=== PATIENT | female | born 1940 | race Caucasian/White ===

== ENCOUNTER 2017-02-19 08:15 | Day surgery (SDC) | payer MEDICARE, OTHER ==
[~2017-02-19] VITALS: Ht 157.5 cm; Wt 59.0 kg
[~2017-02-19 08:15] MED LIST: ATEN-138 PO; BENA20TA48 PO; CLOP75TA19 PO; LANT3I SC; METF500T3 PO; PHEN-549 PO; SERT50TA6 PO; SUCR1TAB56 GTB; ZOLP5TAB PO
[2017-02-19 08:48] VITALS: Ht 157.5 cm; Wt 59.0 kg
[2017-02-19] MEDS ORDERED: DEXTROSE 50% 50 ML SYRINGE ONE (09:10)
[2017-02-19] MEDS ORDERED: PROPOFOL 20 ML ONE ×2 (09:19→09:20)
[2017-02-19 09:39] VITALS: BP 120/59; PULSE 55; RESP 18
[2017-02-19] MEDS ORDERED: LABETALOL HCL 20MG INJ ONE (09:48)
--- NOTE | 2017-02-19 10:00 | OPPN ---
Date/Time of Note Date/Time of Note DATE: 02/19/17 TIME: 09:56 Proc Note GI Procedure Date 02/19/17 Pre-procedure Diagnosis abd pain rectal bleeding Post-procedure Diagnosis mild gastritis malfunctioning g tube ischemic colitis diverticulosis 'lax anal sphincter Procedure Performed: Endoscopy, Colonoscopy Surgeon see signature line Cafe Worker none Anesthesia Type: MAC Tourniquet Time none EBL none Transfusion required none Biopsy 1: gastric bx and colon bx Grafts/Implants none Tubes/Drains none Complication(s) none Pt Condition post procedure: stable Disposition: PACU Indications: lower GI bleed, upper abd Sx despite ther Operative\Procedure Findings egd colonoscopy gastritis g tube tamiko place changed ischemic colitis diverticulosis Procedure Description egd showed gastritis gtube changed colon showed ischemic colitis and diverticulosis lax anal sphincter ANDRIY SAVAGE MD Feb 19, 2017 10:00
[2017-02-19 10:45] VITALS: BP 153/66; PULSE 56; RESP 14
--- NOTE | 2017-02-20 07:36 | GILP ---
DATE OF PROCEDURE: NAME OF PROCEDURE: Esophagogastroduodenoscopy and change of G-tube. PREOPERATIVE DIAGNOSIS: Patient presenting with history of abdominal pain unresponsive to routine t herapy, rule out peptic ulcer disease, gastrostomy site ulcer disease. POSTOPERATIVE DIAGNOSES: Mild patchy gastritis. G-tube is damaged, hence, G-tube was changed. DESCRIPTION OF PROCEDURE: After informed written consent was obtained, the patient was asked to lie on the left lateral side. Intravenous anesthesia was given by anesthesiologist. When the patient became somnolent, the Olympus video upper endoscope was introduced into the oropharynx, then into th e esophagus. Esophagus appeared normal with no mucosal abnormality. Endoscope at this time was adv anced all the way to the onset into the stomach. Stomach showed evidence of several areas of mild e rythema, but no ulcers, no neoplasm noted. The G-tube at this time is noted to be malfunctioning, h ence, the existing G-tube was removed and a new 24-[place] replacement G-tube was inserted into the s tomach and fluid was instilled into the balloon for retention of the G-tube. The duodenum was exami ramon, which appeared normal. Scope at this time was withdrawn and no additional abnormalities detect ed and the procedure was terminated. PLAN: Recommend Protonix 40 mg a day. Dictated By: ANDRIY WOODRUFF/ZONIA Conf#: [id number] DID#: [id number] CC: ZANE AVALOS MD;*EndCC*
--- NOTE | 2017-02-20 07:55 | GILP ---
DATE OF PROCEDURE: PROCEDURE: Colonoscopy. PREOPERATIVE DIAGNOSIS: Rectal bleeding, rule out colorectal neoplasm, colitis, etc. POSTOPERATIVE DIAGNOSES: 1. The findings are consistent with ischemic colitis of the right side of the colon. 2. Diverticulosis of moderate degree. 3. Anal sphincter is lax. DESCRIPTION OF PROCEDURE: After informed written consent was obtained, the patient was asked to lie on the left lateral side. Intravenous anesthesia was given by anesthesiologist, . When t he patient became somnolent, the Olympus video colonoscope was introduced into the rectum and scope was advanced all the way to the cecum. The right side of the colon showed evidence of several areas of erythema and friability. This could be consistent with ischemic colitis. Multiple biopsies wer e obtained. Diverticulosis noted mostly in the descending colon and the transverse colon. No evide nce of neoplasm noted. Scope at this time was withdrawn from the cecum. On the way out, further ev aluation was carried out. No additional abnormalities detected. Anal sphincter was found to be rat her weak. The procedure was terminated. PLAN: Recommend wait for the pathology report. Dictated By: ANDRIY WOODRUFF/NTS Conf#: [id number] DID#: [id number] CC: ZANE AVALOS MD;*EndCC*
--- NOTE | 2017-02-20 08:30 | GILP ---
DATE OF PROCEDURE: NAME OF PROCEDURE: Colonoscopy. PREOPERATIVE DIAGNOSIS: Patient presenting with history of rectal bleeding, rule out colorectal gracia plasm. POSTOPERATIVE DIAGNOSES: 1. Ischemic colitis, mostly in the right side of the colon. 2. Diverticulosis. 3. Lax anal sphincter. DESCRIPTION OF PROCEDURE: After informed written consent was obtained, the patient was asked to lie on the left lateral side. Intravenous anesthesia was given by anesthesiologist, Dr. oMra. When th e patient became somnolent, the Olympus video colonoscope was introduced into the rectum and scope w as advanced all the way to the cecum. Several areas of erythema and friability was noted in the rig ht side of the colon, indicating ischemic colitis. Multiple biopsies were obtained. On the way out , further evaluation was carried out. Diverticulosis is noted mostly in the descending colon and th e transverse colon and at this time, scope was withdrawn, a lax anal sphincter was noted and the pro cedure was terminated. PLAN: Recommend wait for the pathology report. Dictated By: ANDRIY WOODRUFF/ZONIA Conf#: [id number] DID#: [id number]
== END 2017-02-19 13:52 | disposition home or self-care (01) ==
LOC: GIL 08:15
PROVIDERS: ATTEND Internal Medicine Gastroenterology
DX: K55.9 Vascular disorder of intestine, unspecified (principal); K57.30 Diverticulosis of large intestine without perforation or abscess without bleeding; K62.89 Other specified diseases of anus and rectum; Z86.73 Personal history of transient ischemic attack (TIA), and cerebral infarction without residual deficits; E11.8 Type 2 diabetes mellitus with unspecified complications; E78.5 Hyperlipidemia, unspecified; I10 Essential (primary) hypertension; K29.60 Other gastritis without bleeding; K94.23 Gastrostomy malfunction
CPT/HCPCS: 82962; 88305; 88312